=== PATIENT | female | born 1985 | race Caucasian/White ===

== ENCOUNTER 2018-09-13 17:31 | Emergency (ER) | payer SELFPAY ==
[~2018-09-13] VITALS: Ht 167.6 cm; Wt 61.2 kg
[2018-09-13] MEDS ORDERED: CIPRO500 MG PO (17:39)
--- NOTE | 2018-09-13 17:45 | NUR ---
ED Nurse Note: PT FROM HOME CAME IN DUE TO RLQ ABD THAT RADIATES TO RIGHT FLANK FOR A COUPLE OF DAYS. PT STATES FEVER WITH N/V AT HOME. PT IS BEING TREATED FOR UTI AND WA SGIVEN CIPRO. PT IS AAO X4, AMBULATORY WITH NON LABORED BREATHING.
[2018-09-13] MEDS ORDERED: Ketorolac 30mg Inj IV ONE (18:00)
[2018-09-13] MEDS ORDERED: Metoclopramide 10mg/2ml Inj IVP ONE (18:00)
[2018-09-13 18:04] VITALS: BP 135/76
[2018-09-13 18:10] LABS: APPEARANCE,URINE CLOUDY; BASOPHILS % (AUTO) 0.5 % (0.0-2.0); BILIRUBIN, URINE NEGATIVE (NEGATIVE); EOSINOPHILS % (AUTO) 1.6 % (0.0-3.0); GLUCOSE, URINE (UA) NEGATIVE (NEGATIVE); HEMATOCRIT 41.4 % (37.0-47.0); HEMOGLOBIN 14.7 G/DL (12.0-16.0); KETONES,URINE 1+ (NEGATIVE); LEUKOCYTE ESTERASE ,URINE 3+ (NEGATIVE); LYMPHOCYTES % (AUTO) 16.9 % (20.0-45.0); MEAN CORPUSCULAR VOLUME 86 FL (80-99); MONOCYTES % (AUTO) 6.6 % (1.0-10.0); NEUTROPHILS % (AUTO) 74.4 % (45.0-75.0); NITRITE,URINE NEGATIVE (NEGATIVE); PH,URINE 5 (4.5-8.0); PLATELET COUNT 296 K/UL (150-450); PROTEIN,URINE 2+ (NEGATIVE); RED BLOOD COUNT 4.81 M/UL (4.20-5.40); RED CELL DISTRIBUTION WIDTH 10.2 % (11.6-14.8); UROBILINOGEN,URINE NORMAL MG/DL (0.0-1.0); WHITE BLOOD COUNT 10.8 K/UL (4.8-10.8)
[2018-09-13 18:11] LABS: COLOR,URINE YELLOW
--- NOTE | 2018-09-13 18:15 | Emergency Room Report ---
History of Present Illness General Chief Complaint: Female Urogenital Problems Source: Patient (Leonard Brian) Present Illness HPI 33-year-old female with no significant past medical history here complaining of 4 days of right flank pain radiating to right sided lower abdominal side with nausea vomiting. Patient also complains of burning sensation when she urinates however denies blood in urine. Patient went to an urgent care yesterday was diagnosed with UTI and given Cipro however continues to have pain. Patient was given tramadol however started vomiting and did not like tramadol. Denies syncope, chest pain, palpitation, shortness of breath, vaginal discharge. Patient is rating the pain 10 out of 10 with radiation unsure whether it starts in the back and radiates to the front or the other way around denies heavy lifting, has not taken any other medication for pain on tramadol. Denies alcohol drinking and smoking. LMP was a month ago regular. She complains of clotting lately with her menstruations denies history of ovarian cyst and uterine fibroids (Leonard Brian) Allergies: Coded Allergies: LATEX (Verified Allergy, Unknown, 09/13/18) Patient History Past Medical History: see triage record Past Surgical History: unable to obtain Pertinent Family History: none Last Menstrual Period: 08/14/18 Now: No Immunizations: UTD Reviewed Nursing Documentation: PMH: Agreed; PSxH: Agreed (Leonard Brian) Nursing Documentation-PMH Past Medical History: No Stated History (Leonard Brian) Review of Systems All Other Systems: negative except mentioned in HPI (Leonard Brian) Physical Exam Vital Signs Date Time Temp Pulse Resp B/P (MAP) Pulse Ox O2 Delivery O2 Flow Rate FiO2 09/13/18 17:35 97.9 83 17 122/84 (97) 99 Room Air Sp02 EP Interpretation: reviewed, normal General Appearance: alert, GCS 15, non-toxic, mild distress Head: normocephalic, atraumatic Eyes: bilateral eye normal inspection, bilateral eye PERRL ENT: normal ENT inspection, hearing grossly normal, normal pharynx Neck: normal inspection, full range of motion, supple Respiratory: normal inspection, chest non-tender, normal breath sounds, no rhonchi, no retraction, no accessory muscle use, no wheezing Cardiovascular #1: normal inspection, normal peripheral pulses, no edema, no murmur, normal capillary refill Gastrointestinal: no mass, no organomegaly, no peritonitis, no bruit, no hernia , no pulsatile mass, no rebound, guarding - rlq, other - NEG [employer] Rectal: deferred Genitourinary: CVA tenderness (R) - right Musculoskeletal: normal inspection, back normal Neurologic: normal inspection, alert, oriented x3, responsive, rn infusion III-XII nml as tested Psychiatric: normal inspection, judgement/insight normal, memory normal Skin: normal inspection, normal color, no rash, warm/dry, palpation normal, well hydrated Lymphatic: normal inspection, no adenopathy (Leonard Brian) Medical Decision Making PA Attestation All diagnoses and treatment plans were reviewed and discussed with my supervising physician Dr. Pulliam (Leonard Brian) Diagnostic Impression: Primary Impression: Pyelonephritis ER Course 33-year-old female with no significant past medical history here complaining of 4 days of right flank pain radiating to right sided lower abdominal side with nausea vomiting. Patient also complains of burning sensation when she urinates however denies blood in urine. Patient went to an urgent care yesterday was diagnosed with UTI and given Cipro however continues to have pain. Patient was given tramadol however started vomiting and did not like tramadol. Denies syncope, chest pain, palpitation, shortness of breath, vaginal discharge. Patient is rating the pain 10 out of 10 with radiation unsure whether it starts in the back and radiates to the front or the other way around denies heavy lifting, has not taken any other medication for pain on tramadol. Denies alcohol drinking and smoking. LMP was a month ago regular. She complains of clotting lately with her menstruations denies history of ovarian cyst and uterine fibroids Ddx considered but are not limited to: appendicitis, cholycisitis, gastritis, gasthroentritis, UTI, pylonephritis, SBO, diverticulitis, influenza with GI manifestation, GA, complication with , Vital signs: are WNL, pt. is afebrile H&PE are most consistent with: Pyelonephritis ORDERS: abdominal CT, CBC, CMP, UA, urine test, Zofran, Reglan, NS bolus, Toradol, Tylenol 3, naproxen ED INTERVENTIONS: NS bolus, Toradol, Reglan DISCHARGE: At this time pt. is stable for d/c to home. Will provide printed patient care instructions, and any necessary prescriptions. Care plan and follow up instructions have been discussed with the patient prior to discharge. I advised the patient to increase fluid intake, follow-up with a primary care provider symptoms worsen or at this point no sign of renal stone, abnormality of appendix Leukocytes positive urine white blood cell positive and urine (Leonard Brian) CT/MRI/US Diagnostic Results CT/MRI/US Diagnostic Results : Imaging Test Ordered: CT abd pelvis no contrast Impression CT ABDOMEN & PELVIS Without Contrast: EXAM: CT Abdomen and Pelvis Without Intravenous Contrast CLINICAL HISTORY: abdominal pain TECHNIQUE: Axial computed tomography images of the abdomen and pelvis without intravenous contrast. Coronal and sagittal reformatted images were created and reviewed. COMPARISON: none FINDINGS: Lung bases: The lung bases are unremarkable. ABDOMEN: Liver: Normal Gallbladder and bile ducts: Normal Pancreas: Normal Spleen: Normal Adrenals: Normal . Kidneys and ureters: Normal Stomach and bowel: Scattered colonic diverticuli are present. A 1.4 cm cystic structure adjacent to the sigmoid colon (axial image 118 of series 6) abuts the sigmoid colon and could represent a large diverticulum. Appendix: Normal PELVIS: Bladder: Normal Reproductive: Normal ABDOMEN and PELVIS: Intraperitoneal space: No free intraperitoneal fluid or free intraperitoneal gas. Bones/joints: Unremarkable. No acute fracture. No dislocation. Soft tissues: Normal Vasculature: Normal. Lymph nodes: Normal . IMPRESSION: Findings suggesting diverticulosis. No acute abdominal or pelvic pathology Radiologist: Sky Buchanan MD (Leonard Brian) Last Vital Signs Date Time Temp Pulse Resp B/P (MAP) Pulse Ox O2 Delivery O2 Flow Rate FiO2 09/13/18 18:04 98.0 87 15 135/76 99 Room Air (Leonard Brian) Disposition: HOME, SELF-CARE Condition: Stable Scripts Ondansetron (Zofran) 4 Mg Tablet 4 MG ORAL Q6H PRN for Nausea & Vomiting, #12 TAB Prov: Leonard Brian 09/13/18 Naproxen* (NAPROXEN*) 500 Mg Tablet 500 MG ORAL TWICE A DAY, #20 TAB Prov: Leonard Brian 09/13/18 Acetaminophen With Codeine (T#3) (TYLENOL #3 TAB*) Y Tab 1 TAB ORAL Q12HR PRN for For Pain for 3 Days, #6 TAB Prov: Leonard Brian 09/13/18 Patient Instructions: Urinary Tract Infection Additional Instructions: Take medication as directed follow-up with a primary care provider drink a lot of water avoid lifting heavy objects. Leonard Brian Sep 13, 2018 18:15 Venkatesh Pulliam MD Sep 14, 2018 02:12
[2018-09-13 18:19] LABS: ANION GAP 10 mmol/L (5-15); BLOOD UREA NITROGEN 7 mg/dL (7-18); CALCIUM 10.4 MG/DL (8.5-10.1); CARBON DIOXIDE 29 MMOL/L (21-32); CHLORIDE 100 MMOL/L (98-107); CREATININE 0.8 MG/DL (0.55-1.30); POTASSIUM 3.6 MMOL/L (3.5-5.1); SODIUM 139 MMOL/L (136-145)
[2018-09-13 18:25] LABS: ALANINE AMINOTRANSFERASE 24 U/L (12-78); ALBUMIN 4.3 G/DL (3.4-5.0); ALBUMIN/GLOBULIN RATIO 1.1 (1.0-2.7); ALKALINE PHOSPHATASE 60 U/L (46-116); ASPARTATE AMINO TRANSFERASE 16 U/L (15-37); BILIRUBIN,TOTAL 0.7 MG/DL (0.2-1.0)
--- NOTE | 2018-09-13 19:06 | NUR ---
HAND-OFF: Report given to OTTO ADAMS.
[2018-09-13] MEDS ORDERED: ACETAMINOPHEN-1 EAC1 ORAL (19:17)
[2018-09-13] MEDS ORDERED: NAPROXEN500 M2 ORAL (19:17)
[2018-09-13] MEDS ORDERED: ZOFRAN4 M1 ORAL (19:22)
--- NOTE | 2018-09-13 19:30 | NUR ---
ER DISCHARGE NOTE: Patient is cleared to be discharged per ERMD, pt is aox4, on room air, with stable vital signs. pt was given dc and prescription instructions, pt was able to verbalize understanding, pt id band and iv site removed without complications. pt is able to ambulate with steady gait. pt took all belongings.
[2018-09-13 19:31] VITALS: BP 131/72
--- NOTE | 2018-09-14 12:12 | Diagnostic Imaging Report ---
Indication: Abdominal pain Technique: Spiral acquisitions obtained through the abdomen and pelvis. No oral contrast utilized, per emergency room physician request No IV contrast utilized, per referring physician request.. Multiplanar reconstructions were generated. Total dose length product 638.42 mGycm. CTDIvol(s) 12.77 mGy. Dose reduction achieved using automated exposure control Comparison: None Findings: Normal appendix. No evidence of diverticulosis or diverticulitis. No small bowel distention. No free or loculated intraperitoneal gas or fluid is evident. The distal esophagus, stomach, duodenum are unremarkable. Lack of IV contrast limits assessment of the solid organs. The liver, gallbladder, bile ducts, pancreas, spleen, adrenals are unremarkable. No retroperitoneal or mesenteric mass or adenopathy. No pelvic mass or adenopathy. The bones are unremarkable. The included lung bases are clear. Impression: Negative This agrees with the preliminary interpretation provided overnight by [facility] teleradiology service, with minor variation. The CT scanner at [facility] is accredited by the [employer] and the scans are performed using protocols designed to limit radiation exposure to as low as reasonably achievable to attain images of sufficient resolution adequate for diagnostic evaluation.
== END 2018-09-13 19:30 | disposition home or self-care (01) ==
LOC: EMR 18:29
DX: N12 Tubulo-interstitial nephritis, not specified as acute or chronic (principal); R11.2 Nausea with vomiting, unspecified; Z91.040 Latex allergy status
CPT/HCPCS: 36415; 74176; 80053; 81001; 81025; 85025; 87086; 96361; 96374; 96375; 99284; J1885; J2765